=== PATIENT | female | born 1965 | race African-American/Black ===

== ENCOUNTER → 2017-10-20 | Outpatient (CLI) | payer BC | LOC: ULTRA 14:36 | DX: R10.9 Unspecified abdominal pain (principal); R14.0 Abdominal distension (gaseous) ==

== ENCOUNTER 2018-01-29 15:51 | Emergency (ER) | payer BC ==
[~2018-01-29] VITALS: Ht 162.6 cm; Wt 59.0 kg
[2018-01-29] MEDS ORDERED: NOHOMEMEDICATIONS (17:58)
[2018-01-29] MEDS ORDERED: UNICOMPLEX M TA1 TA1 PO (17:59)
[2018-01-29] MEDS ORDERED: SENNA-DOCUSATE1 EACH PO (18:03)
[2018-01-29] MEDS ORDERED: IBUPROFEN 600600 M1 PO (18:03)
[2018-01-29] MEDS ORDERED: NORCO 5-325 TA1 EACH PO (18:03)
[2018-01-29 19:03] VITALS: BP 125/63
== END 2018-01-29 19:04 | disposition home or self-care (01) ==
LOC: ER 15:51
PROC: 0RSJXZZ Reposition Right Shoulder Joint, External Approach (ICD-10-PCS; principal; 2018-01-29)
DX: S43.004A Unspecified dislocation of right shoulder joint, initial encounter (principal); F17.210 Nicotine dependence, cigarettes, uncomplicated; W18.39XA Other fall on same level, initial encounter; Y93.89 Activity, other specified; Y92.89 Other specified places as the place of occurrence of the external cause; Y99.8 Other external cause status